=== PATIENT | female | born 2000 | race Caucasian/White ===

== ENCOUNTER 2025-01-29 05:34 | Emergency (ER) | payer BC, SELFPAY ==
[2025-01-29 05:36] VITALS: BP 117/83
--- NOTE | 2025-01-29 08:23 | ED.GENMED ---
History of Present Illness
General
Chief Complaint: Throat Problem
Source: patient
Exam Limitations: none
Time Seen by Provider: 01/29/25 08:08
History of Present Illness
History of Present Illness:
24-year-old female otherwise healthy presents complaining of intermittent and progressively worse sensation in her throat that something is swollen and getting stuck. She has trouble getting water down at times. She states it feels like there is a
foreign body. She does not recall anything getting stuck in her throat. She denies fevers or chills. It does not feel like a typical sore throat. No shortness of breath but occasionally pain radiates to the back.
Phy Exam
Physical Exam
Physical Exam:
General: Well-appearing female no acute respiratory distress
HEENT: Normocephalic atraumatic posterior pharynx patent without erythema no asymmetry no trismus or drooling or stridor neck is supple no adenopathy
Heart: Regular rate and rhythm
Lungs: Clear no wheeze
Abdomen is soft nontender
Course
Orders/Labs/Results
Orders:
Orders
01/29/25 08:21
CT Neck With Iv Contrast Urgent
Comment:
Reason For Exam: dysphagia, foreign body sensation
01/29/25 08:22
Test Result ONCE
01/29/25 08:33
Complete Blood Count/With Diff Urgent
Comprehensive Metabolic Panel Urgent
HCG, Serum Qualitative Screen Urgent
Abnormal Lab Results
01/29/25
08:33
MPV 10.6 H fL
(7.4-10.4)
Glucose 102 H mg/dl
(70-99)
01/29/25 08:33
01/29/25 08:33
Vital Signs
Initial and Last Documented VS:
Initial Vital Signs
Temp Pulse Resp BP Pulse Ox
97.9 F 95 16 117/83 99
01/29/25 05:36 01/29/25 05:36 01/29/25 05:36 01/29/25 05:36 01/29/25 05:36
Last Documented Vital Signs
Temp Pulse Resp BP Pulse Ox
97.9 F 95 16 119/76 100
01/29/25 05:36 01/29/25 05:36 01/29/25 05:36 01/29/25 11:00 01/29/25 11:03
MDM/Problems Addressed
Differential Diagnosis Includes:
Trouble swallowing and foreign body sensation in throat were getting worse over 2 weeks. consider food bolus however unlikely given progressive onset. She is not unable to tolerate her secretions. Question esophagitis. There is no sign of
pharyngitis or peritonsillar abscess
Will check CT of the neck with IV contrast with labs.
*Pulse Oximetry
SaO2: 99
Oxygen Mode of Delivery: Room air
Patient hypoxic: no
*Critical Care Note
Total Time (30-74mins, 75-104mins- exclusive of procedures): Not Applicable
Update Note
Update Note:
CT negative for acute finding. I suspect element of reflux or esophagitis. Recommend PPI bland diet and GI follow-up. Stable for discharge
ED Attending Note
-
Portions of this chart may have been created with voice recognition software.� Occasional wrong word or��sound alike� substitutions may have occurred due to the inherent limitations of voice recognition software.
Discharge Plan
Departure
Patient Disposition: Home (Routine Discharge)
Date of Disposition: 01/29/25
Time of Disposition: 11:42
Patient with high blood pressure during this ER visit?: No
Discharge Problem:
Dysphagia
Instructions: Dysphagia (DC)
Prescriptions:
New
omeprazole 40 mg capsule,delayed release(DR/EC)
40 mg PO DAILY 14 Days Qty: 14 0RF
No Action
buspirone 5 mg Tablet
5 mg PO DAILY
dextroamphetamine-amphetamine [Adderall XR] 20 mg Capsule,Extended Release 24hr
20 mg PO DAILY
albuterol sulfate 90 mcg/actuation Hfa Aerosol Inhaler
1 inh INHALATION PRN PRN (Reason: sob)
arginine (L-arginine) 500 mg Capsule
500 mg PO DAILY
CoQ-10
50 mg PO DAILY
Referrals:
Adriana Kothari MD [Active, Gastroenterology]
UNKNOWN - PT DOES,NOT KNOW [Family Provider]
Activity Restrictions/Additional Instructions:
Drink plenty of fluids while eating. Eat soft diet. Eat a bland diet. Use antacids as directed. Return if worse otherwise consider following up with GI if symptoms persist
Interventions
Interventions:
*Risk Screen - Suicide Last Done: 01/29/25 05:36
*General Assessment Last Done: 01/29/25 05:36
*Neglect/Abuse Screening Last Done: 01/29/25 05:36
*ED- Fall Risk Assessment Last Done: 01/29/25 08:11
*ED COVID-19 Vaccine History Last Done: 01/29/25 08:11
ED-EENT Assessment Last Done: 01/29/25 08:11
ED- Pulmonary Assessment Last Done: 01/29/25 08:11
Discharge Date and Time
Print Language: INDONESIAN
[2025-01-29 08:44] LABS: Hematocrit 39.5 % (37.0-47.0); Hemoglobin 13.1 g/dL (12.0-16.0); Mean Corp Hgb Conc. 33.2 g/dL (33.0-37.0); Mean Corpuscular Volume 89.2 fL (81.0-99.0); Nucleated Red Blood Cells % 0 %; Platelet Count 255 10^3/uL (130-400); Red Cell Dist. Width 12.4 % (11.5-14.5)
[2025-01-29 09:00] LABS: HCG, Serum Qualitative Screen Negative
[2025-01-29 09:07] LABS: ALT (SGPT) 15 U/L (0-35); AST (SGOT) 19 U/L (14-36); Albumin 4.6 g/dl (3.5-5.0); Alkaline Phosphatase 59 U/L (38-126); Blood Urea Nitrogen 13 mg/dl (7-17); Calcium 9.1 mg/dl (8.4-10.2); Carbon Dioxide 25 mmol/L (22-30); Chloride 107 mmol/L (98-107); Glucose 102 mg/dl (70-99); Potassium 4.0 mmol/L (3.5-5.1); Sodium 139 mmol/L (135-145); Total Protein 7.0 g/dl (6.3-8.2); eGFR > 60.00
[2025-01-29 10:54] VITALS: BP 114/76
[2025-01-29 11:00] VITALS: BP 119/76
[2025-01-29 11:55] VITALS: BP 122/82
== END 2025-01-29 12:26 | disposition home or self-care (01) ==
LOC: EMR 05:34
PROVIDERS: Physician Assistant; EMERGENCY PHYSICIAN Emergency Medicine
DX: R13.10 Dysphagia, unspecified (principal)
CPT/HCPCS: 99284; 70491; 80053; 84703; 85025; Q9967